=== PATIENT | male | born 1955 | race Caucasian/White ===

== ENCOUNTER 2016-09-15 13:50 | Inpatient (IN) ==
[2016-09-15] MEDS ORDERED: Ondansetron 4 MG/2 ML VIAL IVP ONE (15:47)
[2016-09-15] MEDS ORDERED: *HR* Morphine 2 MG/ML SYRINGE IVP ONE (15:47)
[2016-09-15] MEDS ORDERED: Piperacillin/Tazobactam 3.375 GM in D5% in Water (Mini-Bag+) 100 ML IVPB ONE (15:47)
[2016-09-15] MEDS ORDERED: 0.9 % Sodium Chloride 1,000 ML IVC ONE ×3 (15:47→19:04)
[2016-09-15] MEDS ORDERED: Vancomycin 1,250 MG in D5% in Water 250 ML IVPB ONE (15:49)
[2016-09-15 16:12] LABS: Hematocrit 39.5 % (37.5-50.1); Hemoglobin 13.4 g/dL (12.9-16.9); Mean Corpuscular HGB Conc 33.9 g/dL (31.6-35.5); Mean Corpuscular Hemoglobin 27.1 pg (28.0-33.3); Mean Platelet Volume 10.5 fL (9.4-12.4); Platelet Count 290 K/mcL (140-400); Red Blood Count 4.94 M/mcL (4.19-5.50); Segmented Neutrophils % 82.5 %
[2016-09-15 16:13] LABS: Basophils # 0.1 K/mcL (0.0-0.2); Basophils % 0.3 %; Eosinophils # 0.1 K/mcL (0.0-0.6); Eosinophils % 0.3 %; Immature Granulocytes % 1.8 % (0-4); Lymphocytes # 1.5 K/mcL (0.6-4.6); Lymphocytes % 7.3 %; Monocytes # 1.6 K/mcL (0.0-1.3); Monocytes % 7.8 %; Neutrophils # 17.4 K/mcL (1.6-8.9)
[2016-09-15 16:18] LABS: INR 1.3; Prothrombin Time 13.8 Seconds (9.4-12.1)
[2016-09-15 16:28] LABS: Albumin 2.7 g/dL (3.5-5.0); Albumin/Globulin Ratio 0.5 (1.1-2.2); Bilirubin,Direct 0.4 mg/dL (0.0-0.5); Bilirubin,Indirect 0.4 mg/dL (0.0-1.2); Bilirubin,Total 0.8 mg/dL (0.2-1.2); Calcium 9.5 mg/dL (8.6-10.8); Potassium 4.8 mEq/L (3.5-4.5); Total Protein 7.7 g/dL (6.0-8.3)
[2016-09-15 16:36] LABS: Bilirubin,Urine Negative (Negative); Blood,Urine Small (Negative); Clarity,Urine Turbid (Clear); Color,Urine Yellow (Yellow); Glucose,Urine (UA) >=1000 mg/dL (Normal); Ketones,Urine 40 mg/dL (Negative); Leukocyte Esterase,Urine Moderate (Negative); Nitrite,Urine Positive (Negative); Protein,Urine 30 mg/dL (Neg-Trace); Specific Gravity,Urine > 1.030 (1.010-1.025); Urobilinogen,Urine Normal (Normal)
[2016-09-15 16:38] LABS: Bacteria,Urine Many per hpf (None-Few); Hyaline Casts,Urine None Seen per lpf (None-Few); Squamous Epithelial Cell,Urine Many per lpf (None-Few); WBC,Urine TNTC per hpf (0-3)
--- NOTE | 2016-09-15 18:54 | Emergency Department Note ---
Disposition Clinical Impression: Epididymitis, Acute orchitis, Hyperglycemia, Blind in both eyes Urinary tract infection Qualifiers: Urinary tract infection type: acute cystitis Hematuria presence: without hematuria Qualified Code(s): N30.00 - Acute cystitis without hematuria Cellulitis Qualifiers: Site of cellulitis: other site Qualified Code(s): L03.818 - Cellulitis of other sites Disposition: Admitted As Inpatient Condition: Good Referrals: Jessica Christine CNP [Primary Care Provider] - Forms: ED Satisfaction Letter Time of Disposition: 19:09 Male Urogenital HPI - General Chief complaint: ED Urogenital-Male Stated complaint: Bladder infection Time Seen by Provider: 09/15/16 13:59 Source: patient Mode of arrival: ambulatory Limitations: no limitations Nursing Notes Reviewed: Yes Vital Signs Reviewed: Yes - History of Present Illness HPI Narrative: Patient presents emergency room with complaint of difficulty with urination and left testicular swelling. Patient denies any other medical history except for diabetes. Denies any recent fevers chills nausea vomiting or diarrhea. Denies chest pain shortness breath headache or vision change. Denies any recent sexual partners or trauma. Pt Subjective Complaint: testicle pain Onset (ago): day(s) Duration: constant Location: left testicle Severity: moderate Severity scale (1-10): 8 Quality: aching, sharp Improves with: none Worsens with: urination, palpation, movement Reports: denies other symptoms - Related Data Sexually active: No Home Medications Medication Instructions Recorded Confirmed No Known Home Drugs 09/15/16 09/15/16 Allergies Allergy/AdvReac Type Severity Reaction Status Date / Time No Known Allergies Allergy Verified 09/15/16 14:26 All systems ED: reviewed and negative except as stated. Constitutional: Denies: fever, chills Cardiovascular: Denies: chest pain, palpitations, dyspnea on exertion Respiratory: Denies: dyspnea, wheezes Gastrointestinal: Denies: abdominal pain, nausea, vomiting, diarrhea, constipation Genitourinary: Reports: urgency, dysuria, testicular pain. Denies: frequency, hematuria, discharge, testicular mass, genital lesions Musculoskeletal: Denies: back pain, neck pain Neurological: Denies: headache Past Medical History - Past Medical History Attestation: Yes The following information was validated with the patient. Source: patient Medical history: Reports: cancer, diabetes, hypertension, other Psychiatric history: Reports: depression - Social History Smoking Status: Former smoker Smokeless Tobacco Status: No Alcohol use: Reports: none Drug use: Reports: marijuana Physical Exam - General General appearance: alert, in no apparent distress - Chest Chest inspection: Present: normal inspection, symmetric chest wall rise - Respiratory Respiratory exam: Present: normal lung sounds bilaterally. Absent: respiratory distress, wheezes - Cardiovascular Cardiovascular exam: Present: regular rate, normal rhythm, normal heart sounds - Male exam: Present: normal testicular lie, circumcised, erythema, testicular tenderness, scrotal swelling. Absent: phimosis, paraphimosis Scrotal exam: testicular tenderness: left, testicular swelling: left, epididymal tenderness: left - Neurological Exam Neurological exam: Present: alert, oriented X3, CN II-XII intact, normal gait - Skin Skin exam: Present: warm, dry, intact, normal color Course Course Narrative: Patient seen and examined at the time of arrival. See history of present illness. 60-year-old male presents emergency room for evaluation of left testicular pain and hesitancy with urination. Patient denies any recent trauma or injuries. He has not been sexually active in over a year. Patient denies any abdominal pain or issues at this time. His main complaint is difficulty with urination and testicular pain. On my physical exam patient is resting in the bed in no distress she is apical pleural A issue. Lungs are clear heart is regular abdomen is soft nontender nondistended no guarding or rigidity no peritoneal-like symptoms. He has no pain with palpation of the bilateral chest wall and ribs. Genitourinary examination was completed. Patient has no inguinal lymphadenopathy noted. On evaluation of the penis and testicles the left testicle is approximately 5 times the size of the right testicle with significant firmness and cellulitic-like presentation to the skin. Symptoms are not present for almost 1 week according to the patient. Patient denies any history of infections or sexual transmitted diseases. Patient also denies trauma. Based on my presentation symptoms as well as the patient's medical history of diabetes and does not require medication patient is concerning for possible testicular torsion, orchitis, epididymitis, for knees gangrene. Patient was started on broad-spectrum antibiotics including vancomycin and Zosyn. IV antibiotics his blood cultures urinalysis Doppler ultrasound study of the testicle as well as CT imaging of the abdomen to be ordered at this time. Laboratory workup to be completed. Patient will most likely need admission to the hospital once this is treated. Disposition pending treatment course. Vital signs are stable on review patient is in no acute distress his oppositional palpation of the testicle. - Reevaluation(s) Reevaluation #1: Doppler study of the left testicle shows good blood flow. Confirmatory for orchitis and epididymitis with vascularity to the testicle itself. The bilateral testicles appear to be stable otherwise. CT imaging of the abdomen does show an enlarged prostate with urethral narrowing. This could be consistent with the patient's stricture. Urinalysis reviewed showing no acute signs of infection. Patient does not require gonorrhea chlamydia studies. Symptoms are most consistent with cellulitic orchitis. IV antibiotics given. No pain medication required at this time. Fluids given. Labs reviewed urine is negative for acute infection. Otherwise no other acute pathology. Consultation placed to the urologist secondary to the patient having a glucose of 600 on presentation. Concern from my perspective is that there could be progression of orchitis into Lynda's gangrene. Dr. Chang and I reviewed the presentation symptoms and he agreed that this is a concerning issue at this time. He recommended admission with IV antibiotics. Recommendation for Zosyn was given. Patient is artery receives Zosyn and Vanco. Patient will be admitted to the hospitalist at this time. Conversation was had with the hospitalist Dr. hawley. We reviewed the presentation symptoms and history and he had no other recommendations at this time. Patient stable and in no apparent distress at this point with the patient and the family were informed of the plantar comfortable with this plan at this time. Patient will be admitted to the hospital at this point. We will continue monitoring his emergency room admission processes completed. Patient also found a significantly elevated white blood cell count mildly elevated creatinine and a grossly infected urine. Antibiotic regimen should cover this. Patient was not started on the fluid boluses secondary to stable vital signs including blood pressure and heart rate initially. Second liter of fluids of a given at this time because of what appears to be lab abnormalities consistent with septic presentation with known focal infectious etiology. Patient is stable treatment course to be completed at this time. Time: 19:00 Vital Signs Temperature 98.4 F 09/15/16 14:23 Pulse Rate 96 09/15/16 14:23 Respiratory Rate 18 09/15/16 14:23 Blood Pressure 141/87 09/15/16 14:23 O2 Sat by Pulse Oximetry 99 09/15/16 14:23 Temperature 98.4 F 09/15/16 14:23 Pulse Rate 78 09/15/16 18:30 Respiratory Rate 16 09/15/16 18:30 Blood Pressure 154/92 09/15/16 18:30 O2 Sat by Pulse Oximetry 99 09/15/16 18:30 Oxygen Delivery Oxygen Delivery Room Air Urogenital-Male - MDM Narrative Medical decision making narrative: Orchitis, epididymitis, scrotal cellulitis - Medical Records Medical records reviewed: Yes I reviewed the patient's medical records. - Lab Data Lab results reviewed: Yes I reviewed the patient's lab results. Result diagrams: 09/15/16 16:03 09/15/16 16:03 Lab Results 09/15/16 09/15/16 09/15/16 Range/Units 16:03 16:03 16:03 WBC 21.1 H (4.3-11.1) K/mcL RBC 4.94 (4.19-5.50) M/mcL Hgb 13.4 (12.9-16.9) g/dL Hct 39.5 (37.5-50.1) % MCV 80.0 L (83.0-100.0) fL MCH 27.1 L (28.0-33.3) pg MCHC 33.9 (31.6-35.5) g/dL RDW 13.0 (11.5-14.5) % Plt Count 290 (140-400) K/mcL MPV 10.5 (9.4-12.4) fL Immature Gran % 1.8 (0-4) % Seg Neutrophils % 82.5 % Lymphocytes % 7.3 % Monocytes % 7.8 % Eosinophils % 0.3 % Basophils % 0.3 % Neutrophils # 17.4 H (1.6-8.9) K/mcL Lymphocytes # 1.5 (0.6-4.6) K/mcL Monocytes # 1.6 H (0.0-1.3) K/mcL Eosinophils # 0.1 (0.0-0.6) K/mcL Basophils # 0.1 (0.0-0.2) K/mcL PT 13.8 H (9.4-12.1) Seconds INR 1.3 APTT 31.0 (26.0-36.0) Seconds Sodium 128 L (136-145) mEq/L Potassium 4.8 H (3.5-4.5) mEq/L Chloride 94 L (98-109) mEq/L Carbon Dioxide 18 L (19-29) mEq/L BUN 32 H (8-26) mg/dL Creatinine 1.47 H (0.72-1.25) mg/dL Est GFR ( Amer) 59 L (> 60) Est GFR (Non-Af Amer) 49 L (> 60) BUN/Creatinine Ratio 22 (6-26) Glucose 599 H* (70-99) mg/dL Calculated Osmolality 301 H (280-300) Lactic Acid (0.5-2.2) mmol/L Calcium 9.5 (8.6-10.8) mg/dL Total Bilirubin 0.8 (0.2-1.2) mg/dL Direct Bilirubin 0.4 (0.0-0.5) mg/dL Indirect Bilirubin 0.4 (0.0-1.2) mg/dL AST 11 (5-34) Units/L ALT 9 (0-55) Units/L Alkaline Phosphatase 126 (38-126) Units/L Serum Total Protein 7.7 (6.0-8.3) g/dL Albumin 2.7 L (3.5-5.0) g/dL Globulin 5.0 H (2.4-3.5) g/dL Albumin/Globulin Ratio 0.5 L (1.1-2.2) Amylase 15 L (25-125) Units/L Lipase 17 (8-78) Units/L Urine Color (Yellow) Urine Clarity (Clear) Urine pH (5.0-8.0) pH Units Ur Specific [place] (1.010-1.025) Urine Protein (Neg-Trace) mg/dL Urine Glucose (UA) (Normal) mg/dL Urine Ketones (Negative) mg/dL Urine Blood (Negative) Urine Nitrite (Negative) Urine Bilirubin (Negative) Urine Urobilinogen (Normal) mg/dL Ur Leukocyte Esterase (Negative) Urine Microscopic RBC (0-3) per hpf Urine Microscopic WBC (0-3) per hpf Ur Squamous Epith Cells (None-Few) per lpf Urine Bacteria (None-Few) per hpf Hyaline Casts (None-Few) per lpf Urine Yeast Ur Culture Indicated? (NO) 09/15/16 09/15/16 Range/Units 16:03 16:25 WBC (4.3-11.1) K/mcL RBC (4.19-5.50) M/mcL Hgb (12.9-16.9) g/dL Hct (37.5-50.1) % MCV (83.0-100.0) fL MCH (28.0-33.3) pg MCHC (31.6-35.5) g/dL RDW (11.5-14.5) % Plt Count (140-400) K/mcL MPV (9.4-12.4) fL Immature Gran % (0-4) % Seg Neutrophils % % Lymphocytes % % Monocytes % % Eosinophils % % Basophils % % Neutrophils # (1.6-8.9) K/mcL Lymphocytes # (0.6-4.6) K/mcL Monocytes # (0.0-1.3) K/mcL Eosinophils # (0.0-0.6) K/mcL Basophils # (0.0-0.2) K/mcL PT (9.4-12.1) Seconds INR APTT (26.0-36.0) Seconds Sodium (136-145) mEq/L Potassium (3.5-4.5) mEq/L Chloride (98-109) mEq/L Carbon Dioxide (19-29) mEq/L BUN (8-26) mg/dL Creatinine (0.72-1.25) mg/dL Est GFR ( Amer) (> 60) Est GFR (Non-Af Amer) (> 60) BUN/Creatinine Ratio (6-26) Glucose (70-99) mg/dL Calculated Osmolality (280-300) Lactic Acid 1.1 (0.5-2.2) mmol/L Calcium (8.6-10.8) mg/dL Total Bilirubin (0.2-1.2) mg/dL Direct Bilirubin (0.0-0.5) mg/dL Indirect Bilirubin (0.0-1.2) mg/dL AST (5-34) Units/L ALT (0-55) Units/L Alkaline Phosphatase (38-126) Units/L Serum Total Protein (6.0-8.3) g/dL Albumin (3.5-5.0) g/dL Globulin (2.4-3.5) g/dL Albumin/Globulin Ratio (1.1-2.2) Amylase (25-125) Units/L Lipase (8-78) Units/L Urine Color Yellow (Yellow) Urine Clarity Turbid A (Clear) Urine pH 6.0 (5.0-8.0) pH Units Ur Specific [place] > 1.030 H (1.010-1.025) Urine Protein 30 H (Neg-Trace) mg/dL Urine Glucose (UA) >=1000 H (Normal) mg/dL Urine Ketones 40 H (Negative) mg/dL Urine Blood Small H (Negative) Urine Nitrite Positive A (Negative) Urine Bilirubin Negative (Negative) Urine Urobilinogen Normal (Normal) mg/dL Ur Leukocyte Esterase Moderate H (Negative) Urine Microscopic RBC 3-5 H (0-3) per hpf Urine Microscopic WBC TNTC H (0-3) per hpf Ur Squamous Epith Cells Many H (None-Few) per lpf Urine Bacteria Many H (None-Few) per hpf Hyaline Casts None Seen (None-Few) per lpf Urine Yeast Test Not Performed Ur Culture Indicated? YES A (NO) - Radiology Data Radiology results reviewed: Yes I reviewed the patient's radiology results. CT of the abdomen shows enlarged prostate with no stranding around it. Otherwise no acute pathology. There is no free air or cellulitic presentation to the lower part of the abdomen. - EKG Data EKG attestation: Yes I reviewed and interpreted this EKG. EKG shows normal: sinus rhythm, axis, intervals, QRS complexes, ST-T waves Rate: normal Rhythm: NSR [place]/QRS: normal Voltage: increased voltage throughout When compared to previous EKG there are: no significant changes Interpretation: no acute changes, unchanged when compared to prior tracing (date ) (11/08/15)
[2016-09-15] MEDS ORDERED: Naloxone 0.4 MG/ML INJ IVP PRN (21:21)
[2016-09-15] MEDS ORDERED: *HR* HYDROcodone/Acet 5/325 mg TABLET PO PRN (21:21)
[2016-09-15] MEDS ORDERED: Acetaminophen 325 MG TABLET PO PRN (21:21)
[2016-09-15] MEDS ORDERED: *HR* Morphine 2 MG/ML SYRINGE IVP PRN (21:21)
[2016-09-15] MEDS ORDERED: Ondansetron 4 MG/2 ML VIAL IVP PRN (21:21)
[2016-09-15] MEDS ORDERED: D5% in Water 1,000 ML IVC PRN (21:28)
[2016-09-15] MEDS ORDERED: *HR* Dextrose 50 % in Water (Syg) 50 ML SYRINGE IVP PRN (21:28)
[2016-09-15] MEDS ORDERED: Dextrose Gel 15 GM PO PRN ×2 (21:28)
--- NOTE | 2016-09-15 22:06 | Internal Med History&Physical ---
<Tree Dalton - Last Filed: 09/15/16 22:46> Date of Encounter: 09/15/16 Time of Encounter: 21:00 Assessment and Plan (1) Acute orchitis Current visit: Yes Status: Acute Patient presents with acute orchitis of the left testicle causing swelling of the testicle and scrotal area. 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 Urology consult ordered. Blood and urine cultures ordered. Will continue IV Zosyn Q6HR and IV vancomycin Q12HR. Acetaminophen ordered PRN for mild (1-3) pain, hydrocodone ordered PRN for moderate (4-6) pain, and morphine ordered PRN for severe (7-10) pain. Following up labs ordered to monitor WBC status (current WBC is 21.1). Patient does not currently meet sepsis criteria but will monitor him closely for signs of increased infection or sepsis. (2) Cellulitis of scrotum Current visit: Yes Status: Acute Patient presents with orchitis of the left testicle causing swelling of the testicle and scrotal area. Skin is erythematous, warm, and has a cellulitis- like appearance. Will continue IV Zosyn Q6HR and IV vancomycin Q12HR. Acetaminophen ordered PRN for mild (1-3) pain, hydrocodone ordered PRN for moderate (4-6) pain, and morphine ordered PRN for severe (7-10) pain. Following up labs ordered to monitor WBC status. (3) Hyperglycemia Current visit: Yes Status: Acute Patient presents with acute hyperglycemia of 599. Patient states that he is diabetic but does not take medication or insulin at this time. He took Metformin previously. Will do blood glucose checks ACHS and medium dose correction insulin sliding scale. Will consider using 6 units at mealtime if necessary. Will monitor patient. A1C ordered. (4) Discharge planning issues Current visit: Yes Status: Acute Patient presents with total blindness and lives alone. He reports that his daughter does not help him and that his sisters can only help occasionally because they are older and have responsibilities of their own. He states that he does his own dishes, cooking, etc. but cannot get to appointments or to the grocery store. He reports he has not been able to buy groceries for three weeks. SW consult placed to assess what assistance is available to the patient to help maintain his independence. (5) Blind in both eyes Current visit: Yes Status: Chronic Patient presents with total blindness that he reports began in December of 2014. He reports he lost total vision in his left eye first and was encouraged to have surgery in the right eye but lost vision in the right eye following surgery. Patient currently suffers from anxiety and depression related to lack of help. SW consult ordered to assess possible assistance for patient at home. (6) HTN (hypertension) Current visit: Yes Status: Chronic Patient presents with history of chronic hypertension but does not currently take any medication for his HTN. Will administer amlodipine 5 mg daily and monitor patient and vital signs. Qualifiers: Hypertension type: essential hypertension Qualified Code(s): I10 - Essential (primary) hypertension (7) DVT prophylaxis Current visit: Yes Status: Acute Patient is to be placed on DVT prophylaxis due to admission protocol and current bed rest status. Heparin 5,000 units SQ Q8 ordered. Internal Medicine - H&P: HPI Chief complaint: Left testicle swelling/pain Admitted From: Emergency Dept Plans for Post Hospital Care: Home History of present illness: Mr. Toussaint is a 60 year old male who presents from the ED with chief complaint of left testicle swelling and pain for the past 3-4 weeks with symptoms becoming worse over the past week. He also reports difficulty urinating. He denies any recent trauma and states that he has not been sexually active in over a year. Patient has medical history of hypertension and diabetes but teresa not take any medications at this time. He reports that his blood glucose ranged between 108 to 120 but has gotten higher recently. His PCP is Jessica Christine and he states that he has discussed not taking his medications with her but has not been to see her for awhile. Patient reports generalized weakness, dizziness/ lightheadedness, nausea, vomiting, and diarrhea for the past several weeks while he has felt ill but denies fever, chills, chest pain, SOB, or numbness/ tingling. 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 Urology consult ordered and placed. IV Zosyn and vancomycin were administered in the ED and will be continued with IV Zosyn Q6 and IV vancomycin Q12. Patient's initial lactic acid was 1.1. Patient currently has a WBC of 21.1 but no other criteria for sepsis. Will order follow-up labs to monitor WBC and we will continue to monitor patient for signs of increased infection or sepsis. Patient is at high risk for further complications given his testicular infection and will be placed as inpatient with continuation of antibiotic therapy, orders for blood and urine cultures, and safety precautions due to dizziness/lightheadedness. Patient is also currently hyperglycemic with blood glucose of 599 so orders for glucose monitoring ACHS, medium dose correction insulin sliding scale, and hypoglycemia protocol placed. SW consult placed to assess for possible help available to patient based on his current anxiety/ depression related to his current health status and his total blindness. Patient is independent but requires assistance. Patient to be monitored closely. Time spent with patient >40 minutes. 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) - Social History Smoking Status: Former smoker Packs per day: 1 PPD - reports quitting 20 years ago Smokeless Tobacco Status: No Alcohol use: none Drug use: none Occupational status: previously employed Current living situation: Home - Independent Activity Level: Independent ambulation Recent Out of Country Travel Within the Last 8 Weeks: No Exposure or Possible Exposure to Illness During Travel: No - Family History Father Race: Family Member Ethnicity: Non- Living Status: Age at : 65 Cause of : [place] Hx Family Cardiac Disorders: Yes ([place]) Mother Race: Family Member Ethnicity: Non- Living Status: Age at : 72 Cause of : CHF Hx Family Cardiac Disorders: Yes (CHF) Brother Race: Family Member Ethnicity: Non- Living Status: Still Living Hx Family Endocrine Disorder: Yes (DM) Sister Race: Family Member Ethnicity: Non- Living Status: Still Living Hx Family Cardiac Disorders: Yes (Stroke) Internal Medicine - H&P: Meds No Known Home Drugs 09/15/16 [History] Allergies No Known Allergies Allergy (Verified 09/15/16 14:26) All Systems PM: A 10-system review of systems was performed and is negative for pertinent findings except as documented above in the HPI. - Constitutional Constitutional: no chills, no fever(s), no night sweats - EENT Eyes: as per HPI, other visual disturbances (Total blindness since 2014), no discharge, no pain, no photophobia Ears: no ear discharge, no ear pain, no tinnitus Nose, mouth and throat: no dysphagia, no nasal discharge, no neck pain, no sore throat - Breasts Breasts: as per HPI - Cardiovascular Cardiovascular ROS IM: as per HPI, lightheadedness, no chest pain, no diaphoresis, no dyspnea, no palpitations, no syncope - Respiratory Respiratory: no cough, no dyspnea, no wheezing, no excessive phlegm production - Gastrointestinal Gastrointestinal: no abdominal pain, no diarrhea, no hematemesis, no hematochezia, no melena, no nausea, no vomiting - Genitourinary Genitourinary ROS male: as per HPI, difficulty urinating, testicular pain (Left swelling and pain due to orchitis) - Musculoskeletal Musculoskeletal ROS IM: no numbness, no tingling - Integumentary Integumentary IM: no rash, no unusual bruising - Neurological Neurological ROS: no confusion, no convulsions, no focal weakness, no numbness, no tingling, no tremor(s) - Psychiatric Psychiatric: as per HPI, anxiety, depression - Endocrine Endocrine IM: as per HPI - Hematologic/Lymphatic Hematologic/Lymphatic: no easy bruising - Allergic/Immunologic Allergic/Immunologic: as per HPI - Constitutional Vitals: Temp Pulse Resp BP Pulse Ox 98.4 F 85 14 164/93 98 09/15/16 21:01 09/15/16 21:01 09/15/16 21:01 09/15/16 21:01 09/15/16 21:01 General appearance: Present: cooperative, A&O X 3, pleasant, no acute distress, answers questions appropriately - Head Head exam: Present: atraumatic, normocephalic - Eye Eye exam: Present: conjuntiva pink, sclera anicteric - ENT ENT exam: Present: normal exam, normal external ear exam - Neck Neck exam general surgery: Present: supple, trachea midline. Absent: lymphadenopathy - Respiratory Respiratory exam: Present: CTAB. Absent: accessory muscle use, rales, rhonchi, wheezes - Cardiovascular Cardiovascular exam: Present: RRR, +S1, +S2. Absent: diastolic murmur, gallop, rubs, systolic murmur - GI/Abdominal GI/Abdominal exam: Present: normal bowel sounds, soft, no peritoneal signs. Absent: distended, tenderness - Rectal Rectal exam: Present: deferred - exam: Present: testicular tenderness - Expanded Exam exam: testicular swelling: Left, testicular tenderness: Left - Extremities Exam Extremities exam: Present: warm, radial pulses palpable and symetrical. Absent : calf tenderness, cyanotic, pedal edema - Back Exam Back exam: Present: normal inspection - Neurological Exam Neurological exam: Present: CN II-XII intact, oriented X3, no focal deficits. Absent: pronater drift, facial droop, speech deficit - Psychiatric Psychiatric exam: Present: depressed - Skin Skin exam: Present: dry, intact Internal Med - H&P Results - Labs CBC & Chem 7: 09/15/16 16:03 09/15/16 16:03 - EKG Data EKG shows normal: sinus rhythm - EKG Data Prior EKG available for review: yes When compared to previous EKG: there is no significant change EKG comments: 09/15/16 22:17 EKG dated 11/08/15 shows sinus rhythm with voltage criteria for LVH and poor R- wave progression. EKG dated 09/15/16 shows sinus rhythm with minimal voltage criteria for LVH, consider normal variant, and nonspecific T-wave abnormality. - Diagnostic Studies Other Images Additional comments: Impressions Scrotum Ultrasound 09/15/16 15:48 IMPRESSION: 1. No evidence of testicular torsion bilaterally. 2. Increased vascularity of the left testicle and epididymis, suggestive of epididymal orchitis. 3. Small fat containing left inguinal hernia. D/ / Rodriguez Huerta MD / Rodriguez Huerta MD Interpreting Provider: Rodriguez Huerta MD CT scan - abdomen Additional comments: Impressions Abdomen/Pelvis CT 09/15/16 15:48 IMPRESSION: 1. Borderline splenomegaly. 2. Otherwise no acute findings within the abdomen or pelvis. 3. No nephrolithiasis or hydronephrosis. 4. Normal appendix. 5. Mild to moderate prostatomegaly. Mild diffuse bladder wall thickening, likely representing sequela of bladder obstruction from BPH. D/ / 09/15/2016 17:00:30 Rodriguez Huerta MD / matilde Interpreting Provider: Rodriguez Huerta MD <Eliana Ken - Last Filed: 09/16/16 06:05> Date of Encounter: 09/16/16 Internal Medicine - H&P: HPI History of present illness: Mr. Toussaint is a 60 year old male All Systems PM: A 10-system review of systems was performed and is negative for pertinent findings except as documented above in the HPI. - Constitutional Vitals: Temp Pulse Resp BP Pulse Ox 99.4 F 90 14 151/84 96 09/16/16 04:09 09/16/16 04:09 09/16/16 04:09 09/16/16 04:09 09/16/16 04:09 Internal Med - H&P Results - Labs CBC & Chem 7: 09/16/16 04:27 09/15/16 16:03 Labs: Short CBC 09/16/16 Range/Units 04:27 WBC 18.4 H (4.3-11.1) K/mcL Hgb 12.4 L (12.9-16.9) g/dL Hct 36.8 L (37.5-50.1) % Plt Count 285 (140-400) K/mcL Neutrophils # 14.3 H (1.6-8.9) K/mcL - Attending Attestation I examined this patient and my medical decision-making was reviewed with the Advanced Practice Nurse I agree with the documented findings, disposition and treatment plan as described
[2016-09-15] MEDS: 0.9 % Sodium Chloride 1,000 ML IVC SCH (22:53)
[2016-09-15] MEDS: amLODIPine 5 MG TABLET PO SCH (23:54)
[2016-09-15] MEDS: Piperacillin/Tazobactam 3.375 GM in D5% in Water (Mini-Bag+) 100 ML IVPB SCH (23:54)
[2016-09-15] MEDS: *HR* Heparin 5,000 UNIT/ML VIAL SQ SCH (23:54)
[2016-09-16] MEDS ORDERED: Piperacillin/Tazobactam 3.375 GM in D5% in Water (Mini-Bag+) 100 ML IVPB SCH (02:00)
[2016-09-16] MEDS ORDERED: Vancomycin 1,250 MG in D5% in Water 250 ML IVPB SCH (05:00)
[2016-09-16] MEDS: Piperacillin/Tazobactam 3.375 GM in D5% in Water (Mini-Bag+) 100 ML IVPB SCH ×2 (05:35→11:40)
[2016-09-16 05:44] LABS: Basophils # 0.1 K/mcL (0.0-0.2); Basophils % 0.5 %; Eosinophils # 0.1 K/mcL (0.0-0.6); Eosinophils % 0.7 %; Hematocrit 36.8 % (37.5-50.1); Hemoglobin 12.4 g/dL (12.9-16.9); Immature Granulocytes % 1.2 % (0-4); Lymphocytes % 10.9 %; Mean Corpuscular HGB Conc 33.7 g/dL (31.6-35.5); Mean Corpuscular Hemoglobin 26.7 pg (28.0-33.3); Mean Corpuscular Volume 79.3 fL (83.0-100.0); Mean Platelet Volume 10.7 fL (9.4-12.4); Monocytes # 1.7 K/mcL (0.0-1.3); Neutrophils # 14.3 K/mcL (1.6-8.9); Platelet Count 285 K/mcL (140-400); Red Blood Count 4.64 M/mcL (4.19-5.50); Segmented Neutrophils % 77.7 %
[2016-09-16 05:49] LABS: Hemoglobin A1C 13.7 %
[2016-09-16 06:05] LABS: BUN/Creatinine Ratio 22 (6-26); Blood Urea Nitrogen 24 mg/dL (8-26); Calcium 8.3 mg/dL (8.6-10.8); Carbon Dioxide 19 mEq/L (19-29); Chloride 103 mEq/L (98-109); Chol/HDL Ratio 5.6 (0-4.9); Cholesterol 141 mg/dL (< 200); Glucose 393 mg/dL (70-99); HDL Cholesterol 25 mg/dL (40-59); LDL Cholesterol,Calculated 86 mg/dL (0-99); Magnesium 1.9 mg/dL (1.6-2.6); Osmolality,Calculated 294 (280-300); Potassium 4.3 mEq/L (3.5-4.5); Sodium 132 mEq/L (136-145); Triglycerides 152 mg/dL (< 150); eGFR For African Americans > 60 (> 60); eGFR For Non-African Americans > 60 (> 60)
[2016-09-16] MEDS ORDERED: Vancomycin 1,500 MG in D5% in Water 250 ML IVPB SCH (07:00)
[2016-09-16] MEDS: *HR* Heparin 5,000 UNIT/ML VIAL SQ SCH ×2 (08:16→16:44)
[2016-09-16] MEDS: Pantoprazole 40 MG VIAL IVP SCH (08:17)
[2016-09-16] MEDS: Insulin LISPRO 300 UNITS/3 ML VIAL SQ SCH ×4 (08:17→20:28)
[2016-09-16] MEDS: amLODIPine 5 MG TABLET PO SCH (08:17)
--- NOTE | 2016-09-16 08:39 | Urology - Consult Note ---
Date of Encounter: 09/16/16 Time of Encounter: 08:37 - Assessment and Plan (1) Epididymitis Current Visit: Yes Status: Acute Assessment and plan: 60-year-old man with diabetes and an acute urinary tract infection with epididymitis. His currently on Zosyn. Await for the results of the urine culture. Continue broad-spectrum antibiotics until the culture results have returned. I advised the nurse to apply scrotal elevation to improve his swelling. At this time, no surgical intervention is necessary. We will continue to follow while he is an inpatient. (2) Urinary tract infection Current Visit: Yes Status: Acute Assessment and plan: He has concern for a urinary tract infection. His urinalysis showed positive nitrite and numerous white blood cells. Once the urine culture returns, we can tailor antibiotic coverage. Qualifiers: Urinary tract infection type: acute cystitis Hematuria presence: without hematuria Qualified Code(s): N30.00 - Acute cystitis without hematuria Urology CN:HPI Consult date: 09/16/16 Reason for consult Urology: Other (Orchitis) Requesting physician: William Hines History of present illness: 60-year-old man was admitted for hyperglycemia and left orchitis. He reports having left testicular pain and swelling over the last week. The pain has been mild to moderate. It is mostly tender when he moves. While he is lying, his pain is minimal. He says his left testicle feels very firm and hard to him. He was seen in the emergency department. CT scan and ultrasound were obtained. This showed evidence of left epididymoorchitis. There is no evidence of abscess or gangrene. He has been admitted and is currently on Zosyn. His urinalysis appeared infected. Past Med Surg Social Fam HX - Past Medical History Medical history: cancer (Skin melanoma 20 years ago ), diabetes, hypertension, other Psychiatric history: anxiety, depression - Past Surgical History Surgical History: other (Eye surgery on right eye after loss of sight in left eye. 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) - Social History Smoking Status: Former smoker Packs per day: 1 PPD - reports quitting 20 years ago Smokeless Tobacco Status: No Alcohol use: none Drug use: none - Family History Brother Race: Family Member Ethnicity: Non- Living Status: Still Living Hx Family Endocrine Disorder: Yes (DM) Sister Race: Family Member Ethnicity: Non- Living Status: Still Living Hx Family Cardiac Disorders: Yes (Stroke) Father Race: Family Member Ethnicity: Non- Living Status: Age at : 65 Cause of : [place] Hx Family Cardiac Disorders: Yes ([place]) Mother Race: Family Member Ethnicity: Non- Living Status: Age at : 72 Cause of : CHF Hx Family Cardiac Disorders: Yes (CHF) Medications and Allergies No Known Home Drugs 09/15/16 [History] Allergies No Known Allergies Allergy (Verified 09/15/16 14:26) Review of Systems - Constitutional no chills, no fever(s) - EENT Nose, mouth and throat: no dizziness - Cardiovascular no chest pain - Respiratory no dyspnea - Gastrointestinal no nausea, no vomiting - Genitourinary genital pain, no flank pain, no hematuria - Musculoskeletal no back pain - Integumentary no erythema, no rash - Neurological no weakness - Psychiatric no suicidal ideation - Hematologic/Lymphatic no easy bleeding - Allergic/Immunologic no wheezing Exam Initial Vital Signs Temp Pulse Resp BP Pulse Ox 98.4 F 96 18 141/87 99 09/15/16 14:23 09/15/16 14:23 09/15/16 14:23 09/15/16 14:23 09/15/16 14:23 - General physical appearance Present: well developed, well nourished, no distress - ENT Present: normal nares - Neck Present: trachea midline - Respiratory Present: normal respiratory effort - Cardiovascular Cardiovascular exam IM: RRR - Abdomen Abdomen: Present: soft - Genitourinary normal penis with no external lesions, testicles present, other (Scrotum is slightly erythematous. Left testicle and hemiscrotum is firm and swollen. It is tender to palpation. No fluctuance is noted. No abscess or sinus draining is seen.) Urology Results - Labs 09/16/16 04:27 09/16/16 04:27 Abnormal lab results WBC 18.4 K/mcL (4.3-11.1) H 09/16/16 04:27 Hgb 12.4 g/dL (12.9-16.9) L 09/16/16 04:27 Hct 36.8 % (37.5-50.1) L 09/16/16 04:27 MCV 79.3 fL (83.0-100.0) L 09/16/16 04:27 MCH 26.7 pg (28.0-33.3) L 09/16/16 04:27 Neutrophils # 14.3 K/mcL (1.6-8.9) H 09/16/16 04:27 Monocytes # 1.7 K/mcL (0.0-1.3) H 09/16/16 04:27 PT 13.8 Seconds (9.4-12.1) H 09/15/16 16:03 Sodium 132 mEq/L (136-145) L 09/16/16 04:27 Glucose 393 mg/dL (70-99) H 09/16/16 04:27 POC Glucose 304 (58-89) H 09/16/16 07:39 Hemoglobin A1c 13.7 % (-5.6) H 09/16/16 04:27 Calcium 8.3 mg/dL (8.6-10.8) L 09/16/16 04:27 Albumin 2.7 g/dL (3.5-5.0) L 09/15/16 16:03 Globulin 5.0 g/dL (2.4-3.5) H 09/15/16 16:03 Albumin/Globulin Ratio 0.5 (1.1-2.2) L 09/15/16 16:03 Triglycerides 152 mg/dL (< 150) H 09/16/16 04:27 HDL Cholesterol 25 mg/dL (40-59) L 09/16/16 04:27 Cholesterol/HDL Ratio 5.6 (0-4.9) H 09/16/16 04:27 Amylase 15 Units/L (25-125) L 09/15/16 16:03 Urine Clarity Turbid (Clear) A 09/15/16 16:25 Ur Specific [place] > 1.030 (1.010-1.025) H 09/15/16 16:25 Urine Protein 30 mg/dL (Neg-Trace) H 09/15/16 16:25 Urine Glucose (UA) >=1000 mg/dL (Normal) H 09/15/16 16:25 Urine Ketones 40 mg/dL (Negative) H 09/15/16 16:25 Urine Blood Small (Negative) H 09/15/16 16:25 Urine Nitrite Positive (Negative) A 09/15/16 16:25 Ur Leukocyte Esterase Moderate (Negative) H 09/15/16 16:25 Urine Microscopic RBC 3-5 per hpf (0-3) H 09/15/16 16:25 Urine Microscopic WBC TNTC per hpf (0-3) H 09/15/16 16:25 Ur Squamous Epith Cells Many per lpf (None-Few) H 09/15/16 16:25 Urine Bacteria Many per hpf (None-Few) H 09/15/16 16:25 Ur Culture Indicated? YES (NO) A 09/15/16 16:25 Diabetes panel 09/16/16 09/16/16 Range/Units 04:27 04:27 Sodium 132 L (136-145) mEq/L Potassium 4.3 (3.5-4.5) mEq/L Chloride 103 (98-109) mEq/L Carbon Dioxide 19 (19-29) mEq/L BUN 24 (8-26) mg/dL Creatinine 1.11 (0.72-1.25) mg/dL Glucose 393 H (70-99) mg/dL Hemoglobin A1c 13.7 H ( - 5.6) % Calcium 8.3 L (8.6-10.8) mg/dL Triglycerides 152 H (< 150) mg/dL HDL Cholesterol 25 L (40-59) mg/dL Calcium panel 09/16/16 Range/Units 04:27 Calcium 8.3 L (8.6-10.8) mg/dL Pituitary panel 09/16/16 Range/Units 04:27 Sodium 132 L (136-145) mEq/L Potassium 4.3 (3.5-4.5) mEq/L Chloride 103 (98-109) mEq/L Carbon Dioxide 19 (19-29) mEq/L BUN 24 (8-26) mg/dL Creatinine 1.11 (0.72-1.25) mg/dL Glucose 393 H (70-99) mg/dL Calcium 8.3 L (8.6-10.8) mg/dL Adrenal panel 09/16/16 Range/Units 04:27 Sodium 132 L (136-145) mEq/L Potassium 4.3 (3.5-4.5) mEq/L Chloride 103 (98-109) mEq/L Carbon Dioxide 19 (19-29) mEq/L BUN 24 (8-26) mg/dL Creatinine 1.11 (0.72-1.25) mg/dL Glucose 393 H (70-99) mg/dL Calcium 8.3 L (8.6-10.8) mg/dL All other labs normal. - Imaging CT scan - abdomen: report reviewed, image reviewed CT scan - pelvis: report reviewed, image reviewed US - abdomen: report reviewed, image reviewed US - pelvic: report reviewed, image reviewed Consult Discharge Plan - Plan Referrals: Jessica Christine, TROMMEL TENDER [Primary Care Provider] -
[2016-09-16] MEDS ORDERED: Doxycycline 100 MG in 0.9 % Sodium Chloride Mini Bag 100 ML IVPB SCH (13:30)
--- NOTE | 2016-09-16 13:34 | Internal Med Progress Note ---
Date of Encounter: 09/16/16 Time of Encounter: 13:31 - Assessment and plan (1) Sepsis Current Visit: Yes Status: Acute Assessment and plan: Secondary to acute left orchitis, epididymitis and acute cellulitis is Discontinue vancomycin and Zosyn Start Levaquin and doxycycline IV Obtain urine sample to test for gonococcus and Chlamydia Await urine cultures Urology medical sales consultant Qualifiers: Sepsis type: sepsis due to unspecified organism Qualified Code(s): A41.9 - Sepsis, unspecified organism (2) HTN (hypertension) Current Visit: Yes Status: Chronic Qualifiers: Hypertension type: essential hypertension Qualified Code(s): I10 - Essential (primary) hypertension (3) T2DM (type 2 diabetes mellitus) Current Visit: No Status: Chronic Assessment and plan: Continue insulin sliding scale Qualifiers: Diabetes mellitus complication status: without complication Diabetes mellitus intermediate school teacher insulin use: without intermediate school teacher use Qualified Code(s): E11.9 - Type 2 diabetes mellitus without complications (4) Blind in both eyes Current Visit: Yes Status: Chronic (5) Urinary tract infection Current Visit: Yes Status: Acute Qualifiers: Urinary tract infection type: acute cystitis Hematuria presence: without hematuria Qualified Code(s): N30.00 - Acute cystitis without hematuria (6) Epididymitis Current Visit: Yes Status: Acute (7) Acute orchitis Current Visit: Yes Status: Acute (8) Cellulitis of scrotum Current Visit: Yes Status: Acute - Subjective Interval history: Complains of pain in his left testicle, denies any major dysuria at the moment, no abdominal pain, no diarrhea, no chest pressures of breath, complains of chills - Constitutional Vitals: Temp Pulse Resp BP Pulse Ox 98.8 F 88 16 121/76 94 09/16/16 11:09 09/16/16 11:09 09/16/16 11:09 09/16/16 11:09 09/16/16 11:09 General appearance: Present: cooperative, A&O X 3, pleasant, no acute distress, answers questions appropriately - Head Head exam: Present: atraumatic, normocephalic - Eye Eye exam: Present: conjuntiva pink, sclera anicteric. Absent: PERRL Pupils: Absent: PERRL Additional comments: Bilateral blindness - Neck Neck exam general surgery: Present: supple, trachea midline. Absent: lymphadenopathy - Respiratory Respiratory exam: Present: CTAB. Absent: accessory muscle use, rales, rhonchi, wheezes - Cardiovascular Cardiovascular exam: Present: RRR, +S1, +S2. Absent: diastolic murmur, gallop, rubs, systolic murmur - GI/Abdominal GI/Abdominal exam: Present: normal bowel sounds, soft, no peritoneal signs. Absent: distended, tenderness Additional comments: Scrotum is extremely edematous and erythematous mainly on the left side, tender to touch - Extremities Exam Extremities exam: Present: warm, radial pulses palpable and symetrical. Absent : calf tenderness, cyanotic, pedal edema - Neurological Exam Neurological exam: Present: CN II-XII intact, oriented X3, no focal deficits. Absent: pronater drift, facial droop, speech deficit - Skin Skin exam: Present: dry, intact Internal Medicine: Result - Labs CBC & Chem 7: 09/16/16 04:27 09/16/16 04:27 Labs: Short CBC 09/16/16 Range/Units 04:27 WBC 18.4 H (4.3-11.1) K/mcL Hgb 12.4 L (12.9-16.9) g/dL Hct 36.8 L (37.5-50.1) % Plt Count 285 (140-400) K/mcL Neutrophils # 14.3 H (1.6-8.9) K/mcL BMP 09/16/16 04:27 Sodium 132 L Potassium 4.3 Chloride 103 Carbon Dioxide 19 BUN 24 Creatinine 1.11 Glucose 393 H Calcium 8.3 L - ABG Interpretation ABG results: PT/INR, D-dimer PT 13.8 Seconds (9.4-12.1) H 09/15/16 16:03 Consult Discharge Plan - Plan Referrals: Jessica Christine, CIPHER EXPERT [Primary Care Provider] -
[2016-09-16] MEDS ORDERED: Levofloxacin 500 MG/100 ML 500 MG/100 ML BAG IVPB SCH (14:00)
[2016-09-16] MEDS: Levofloxacin 750 MG/150 ML 750 MG/150 ML BAG IVPB SCH (14:32)
[2016-09-16] MEDS: 0.9 % Sodium Chloride 1,000 ML IVC SCH ×2 (14:41→20:28)
[2016-09-17] MEDS: *HR* Heparin 5,000 UNIT/ML VIAL SQ SCH ×4 (00:56→23:35)
[2016-09-17] MEDS ORDERED: Doxycycline 100 MG in 0.9 % Sodium Chloride Mini Bag 100 ML IVPB SCH (02:30)
[2016-09-17 05:34] LABS: Hematocrit 35.4 % (37.5-50.1); Hemoglobin 11.8 g/dL (12.9-16.9); Immature Platelets 2.9 % (1.1-6.1); Mean Corpuscular HGB Conc 33.3 g/dL (31.6-35.5); Mean Corpuscular Hemoglobin 26.9 pg (28.0-33.3); Mean Corpuscular Volume 80.6 fL (83.0-100.0); Mean Platelet Volume 10.4 fL (9.4-12.4); Red Blood Count 4.39 M/mcL (4.19-5.50); Red Cell Distribution Width 12.6 % (11.5-14.5)
[2016-09-17 06:24] LABS: BUN/Creatinine Ratio 21 (6-26); Blood Urea Nitrogen 19 mg/dL (8-26); Calcium 8.4 mg/dL (8.6-10.8); Carbon Dioxide 17 mEq/L (19-29); Chloride 108 mEq/L (98-109); Glucose 243 mg/dL (70-99); Osmolality,Calculated 292 (280-300); Sodium 136 mEq/L (136-145); eGFR For African Americans > 60 (> 60); eGFR For Non-African Americans > 60 (> 60)
[2016-09-17] MEDS ORDERED: Aminoglycoside Consult 1 EACH MC ONE (08:28)
[2016-09-17] MEDS: Insulin LISPRO 300 UNITS/3 ML VIAL SQ SCH ×4 (08:30→20:37)
[2016-09-17] MEDS: Levofloxacin 750 MG/150 ML 750 MG/150 ML BAG IVPB SCH (08:30)
[2016-09-17] MEDS: Pantoprazole 40 MG VIAL IVP SCH (08:30)
[2016-09-17] MEDS: amLODIPine 5 MG TABLET PO SCH (08:30)
--- NOTE | 2016-09-17 09:21 | Urology Progress Note ---
Date of Encounter: 09/17/16 Time of Encounter: 09:18 - Assessment and Plan (1) Epididymitis Current Visit: Yes Status: Acute Assessment and plan: His left epididymitis is stable and slightly improved given his improvement in the white blood cell count. Await urine cultures. IV Levofloxacin is a reasonable antibiotic given that it can be transitioned to an oral version. we'll continue to follow along. (2) Urinary tract infection Current Visit: Yes Status: Acute Assessment and plan: His urine is growing out gram-negative rods. We will await results of urine cultures and then transition to oral antibiotics. Qualifiers: Urinary tract infection type: acute cystitis Hematuria presence: without hematuria Qualified Code(s): N30.00 - Acute cystitis without hematuria Progress Note Narrative: 60-year-old man with left epididymo-orchitis and urinary tract infection. He is doing well. No fevers overnight. He is still having some swelling and discomfort in the left hemiscrotum. Cultures are growing out gram-negative rods. He is currently on levofloxacin and doxycycline IV. GC and Chlamydia testing were negative. Objective Initial Vital Signs Temp Pulse Resp BP Pulse Ox 98.4 F 96 18 141/87 99 09/15/16 14:23 09/15/16 14:23 09/15/16 14:23 09/15/16 14:23 09/15/16 14:23 - General physical appearance Present: well developed, well nourished, no distress - Respiratory Present: normal respiratory effort - Abdomen Present: soft - Genitourinary Present: normal penis with no external lesions (left testicle is still edematous and firm. No abscess noted. No gangrene seen.) - Labs 09/17/16 04:42 09/17/16 04:42 Diabetes panel 09/17/16 Range/Units 04:42 Sodium 136 (136-145) mEq/L Potassium 4.0 (3.5-4.5) mEq/L Chloride 108 (98-109) mEq/L Carbon Dioxide 17 L (19-29) mEq/L BUN 19 (8-26) mg/dL Creatinine 0.90 (0.72-1.25) mg/dL Glucose 243 H (70-99) mg/dL Calcium 8.4 L (8.6-10.8) mg/dL Calcium panel 09/17/16 Range/Units 04:42 Calcium 8.4 L (8.6-10.8) mg/dL Pituitary panel 09/17/16 Range/Units 04:42 Sodium 136 (136-145) mEq/L Potassium 4.0 (3.5-4.5) mEq/L Chloride 108 (98-109) mEq/L Carbon Dioxide 17 L (19-29) mEq/L BUN 19 (8-26) mg/dL Creatinine 0.90 (0.72-1.25) mg/dL Glucose 243 H (70-99) mg/dL Calcium 8.4 L (8.6-10.8) mg/dL Adrenal panel 09/17/16 Range/Units 04:42 Sodium 136 (136-145) mEq/L Potassium 4.0 (3.5-4.5) mEq/L Chloride 108 (98-109) mEq/L Carbon Dioxide 17 L (19-29) mEq/L BUN 19 (8-26) mg/dL Creatinine 0.90 (0.72-1.25) mg/dL Glucose 243 H (70-99) mg/dL Calcium 8.4 L (8.6-10.8) mg/dL Consult Discharge Plan - Plan Referrals: Jessica Christine, WINDING OPERATOR [Primary Care Provider] -
--- NOTE | 2016-09-17 09:41 | Internal Med Progress Note ---
Date of Encounter: 09/17/16 Time of Encounter: 09:39 - Assessment and plan (1) Sepsis Current Visit: Yes Status: Acute Assessment and plan: Secondary to acute left orchitis, epididymitis and acute cellulitis Discontinued vancomycin and Zosyn on 09/15/16 Continue Levaquin day 2 Discontinue doxycycline IV as he tested negative for gonococcus and Chlamydia urine culture growing a gram-negative bacteria Urology consulted Qualifiers: Sepsis type: sepsis due to unspecified organism Qualified Code(s): A41.9 - Sepsis, unspecified organism (2) HTN (hypertension) Current Visit: Yes Status: Chronic Qualifiers: Hypertension type: essential hypertension Qualified Code(s): I10 - Essential (primary) hypertension (3) T2DM (type 2 diabetes mellitus) Current Visit: No Status: Chronic Assessment and plan: Continue insulin sliding scale Qualifiers: Diabetes mellitus complication status: without complication Diabetes mellitus chcf insulin use: without chcf use Qualified Code(s): E11.9 - Type 2 diabetes mellitus without complications (4) Blind in both eyes Current Visit: Yes Status: Chronic (5) Urinary tract infection Current Visit: Yes Status: Acute Qualifiers: Urinary tract infection type: acute cystitis Hematuria presence: without hematuria Qualified Code(s): N30.00 - Acute cystitis without hematuria (6) Epididymitis Current Visit: Yes Status: Acute (7) Acute orchitis Current Visit: Yes Status: Acute (8) Cellulitis of scrotum Current Visit: Yes Status: Acute - Subjective Interval history: Complains of less pain in his left testicle, denies any major dysuria at the moment, no abdominal pain, no diarrhea, no chest pressures of breath, complains of chills, no fever - Constitutional Vitals: Temp Pulse Resp BP Pulse Ox 98 F 79 18 138/81 93 09/17/16 08:06 09/17/16 08:06 09/17/16 08:06 09/17/16 08:06 09/17/16 08:15 General appearance: Present: cooperative, A&O X 3, pleasant, no acute distress, answers questions appropriately Exam: Head Head exam: Present: atraumatic, normocephalic - Eye Eye exam: Present: conjuntiva pink, sclera anicteric. Absent: PERRL Pupils: Absent: PERRL Additional comments: Bilateral blindness - Neck Neck exam general surgery: Present: supple, trachea midline. Absent: lymphadenopathy - Respiratory Respiratory exam: Present: CTAB. Absent: accessory muscle use, rales, rhonchi, wheezes - Cardiovascular Cardiovascular exam: Present: RRR, +S1, +S2. Absent: diastolic murmur, gallop, rubs, systolic murmur - GI/Abdominal GI/Abdominal exam: Present: normal bowel sounds, soft, no peritoneal signs. Absent: distended, tenderness Additional comments: Scrotum is extremely edematous and erythematous mainly on the left side, tender to touch - Extremities Exam Extremities exam: Present: warm, radial pulses palpable and symetrical. Absent : calf tenderness, cyanotic, pedal edema - Neurological Exam Neurological exam: Present: CN II-XII intact, oriented X3, no focal deficits. Absent: pronater drift, facial droop, speech deficit - Skin Skin exam: Present: dry, intact Internal Medicine: Result - Labs CBC & Chem 7: 09/17/16 04:42 09/17/16 04:42 Labs: Short CBC 09/17/16 Range/Units 04:42 WBC 17.3 H (4.3-11.1) K/mcL Hgb 11.8 L (12.9-16.9) g/dL Hct 35.4 L (37.5-50.1) % Plt Count 302 (140-400) K/mcL BMP 09/17/16 04:42 Sodium 136 Potassium 4.0 Chloride 108 Carbon Dioxide 17 L BUN 19 Creatinine 0.90 Glucose 243 H Calcium 8.4 L - ABG Interpretation ABG results: PT/INR, D-dimer PT 13.8 Seconds (9.4-12.1) H 09/15/16 16:03 Consult Discharge Plan - Plan Referrals: Jessica Christine, JANITORIAL SERVICES SUPERVISOR [Primary Care Provider] -
[2016-09-17] MEDS: 0.9 % Sodium Chloride 1,000 ML IVC SCH (20:38)
[2016-09-18] MEDS: 0.9 % Sodium Chloride 1,000 ML IVC SCH (03:36)
[2016-09-18 04:31] LABS: Hematocrit 37.7 % (37.5-50.1); Hemoglobin 12.3 g/dL (12.9-16.9); Mean Corpuscular HGB Conc 32.6 g/dL (31.6-35.5); Mean Corpuscular Hemoglobin 26.5 pg (28.0-33.3); Mean Corpuscular Volume 81.1 fL (83.0-100.0); Mean Platelet Volume 10.3 fL (9.4-12.4); Platelet Count 352 K/mcL (140-400); Red Blood Count 4.65 M/mcL (4.19-5.50); Red Cell Distribution Width 12.9 % (11.5-14.5)
[2016-09-18 04:46] LABS: BUN/Creatinine Ratio 17 (6-26); Blood Urea Nitrogen 15 mg/dL (8-26); Calcium 8.6 mg/dL (8.6-10.8); Carbon Dioxide 18 mEq/L (19-29); Chloride 108 mEq/L (98-109); Glucose 272 mg/dL (70-99); Osmolality,Calculated 290 (280-300); Sodium 135 mEq/L (136-145); eGFR For African Americans > 60 (> 60); eGFR For Non-African Americans > 60 (> 60)
--- NOTE | 2016-09-18 07:32 | Urology Progress Note ---
Date of Encounter: 09/18/16 Time of Encounter: 07:30 - Assessment and Plan (1) Epididymitis Current Visit: Yes Status: Acute Assessment and plan: Left epididymoorchitis on IV levaquin. Continue IV antibiotics. (2) Urinary tract infection Current Visit: Yes Status: Acute Assessment and plan: Continue IV antibiotic for another day and transition to PO. Qualifiers: Urinary tract infection type: acute cystitis Hematuria presence: without hematuria Qualified Code(s): N30.00 - Acute cystitis without hematuria Progress Note Narrative: 60 year old man with left orchitis. On IV antibiotics. Urine culture grew out E. coli. Objective Initial Vital Signs Temp Pulse Resp BP Pulse Ox 98.4 F 96 18 141/87 99 09/15/16 14:23 09/15/16 14:23 09/15/16 14:23 09/15/16 14:23 09/15/16 14:23 - General physical appearance Present: well developed, well nourished - Respiratory Present: normal expansion - Abdomen Present: soft - Genitourinary Present: other (Left testicle still edematous and firm. ) - Labs 09/18/16 03:22 09/18/16 03:22 Diabetes panel 09/18/16 Range/Units 03:22 Sodium 135 L (136-145) mEq/L Potassium 4.0 (3.5-4.5) mEq/L Chloride 108 (98-109) mEq/L Carbon Dioxide 18 L (19-29) mEq/L BUN 15 (8-26) mg/dL Creatinine 0.90 (0.72-1.25) mg/dL Glucose 272 H (70-99) mg/dL Calcium 8.6 (8.6-10.8) mg/dL Calcium panel 09/18/16 Range/Units 03:22 Calcium 8.6 (8.6-10.8) mg/dL Pituitary panel 09/18/16 Range/Units 03:22 Sodium 135 L (136-145) mEq/L Potassium 4.0 (3.5-4.5) mEq/L Chloride 108 (98-109) mEq/L Carbon Dioxide 18 L (19-29) mEq/L BUN 15 (8-26) mg/dL Creatinine 0.90 (0.72-1.25) mg/dL Glucose 272 H (70-99) mg/dL Calcium 8.6 (8.6-10.8) mg/dL Adrenal panel 09/18/16 Range/Units 03:22 Sodium 135 L (136-145) mEq/L Potassium 4.0 (3.5-4.5) mEq/L Chloride 108 (98-109) mEq/L Carbon Dioxide 18 L (19-29) mEq/L BUN 15 (8-26) mg/dL Creatinine 0.90 (0.72-1.25) mg/dL Glucose 272 H (70-99) mg/dL Calcium 8.6 (8.6-10.8) mg/dL Consult Discharge Plan - Plan Referrals: Jessica Christine, CLINICAL PROVIDER TRAINER [Primary Care Provider] -
[2016-09-18] MEDS: Levofloxacin 750 MG/150 ML 750 MG/150 ML BAG IVPB SCH (08:15)
[2016-09-18] MEDS: Insulin LISPRO 300 UNITS/3 ML VIAL SQ SCH ×6 (08:16→20:48)
[2016-09-18] MEDS: amLODIPine 5 MG TABLET PO SCH (08:16)
[2016-09-18] MEDS: *HR* Heparin 5,000 UNIT/ML VIAL SQ SCH ×3 (08:16→23:47)
--- NOTE | 2016-09-18 08:49 | Internal Med Progress Note ---
Date of Encounter: 09/18/16 Time of Encounter: 08:46 - Assessment and plan (1) Sepsis Current Visit: Yes Status: Acute Assessment and plan: Secondary to acute left orchitis, epididymitis and acute cellulitis Discontinued vancomycin and Zosyn on 09/15/16 Continue Levaquin day 3 Resume doxycycline IV due to possible cellulitis as well tested negative for gonococcus and Chlamydia urine culture grew pansensitive Escherichia coli Urology consulted Qualifiers: Sepsis type: sepsis due to unspecified organism Qualified Code(s): A41.9 - Sepsis, unspecified organism (2) HTN (hypertension) Current Visit: Yes Status: Chronic Assessment and plan: Accelerated hypertension likely secondary to pain Order hydralazine as needed Qualifiers: Hypertension type: essential hypertension Qualified Code(s): I10 - Essential (primary) hypertension (3) T2DM (type 2 diabetes mellitus) Current Visit: No Status: Chronic Assessment and plan: Continue insulin sliding scale Qualifiers: Diabetes mellitus complication status: without complication Diabetes mellitus retirement insulin use: without retirement use Qualified Code(s): E11.9 - Type 2 diabetes mellitus without complications (4) Blind in both eyes Current Visit: Yes Status: Chronic (5) Urinary tract infection Current Visit: Yes Status: Acute Qualifiers: Urinary tract infection type: acute cystitis Hematuria presence: without hematuria Qualified Code(s): N30.00 - Acute cystitis without hematuria (6) Epididymitis Current Visit: Yes Status: Acute (7) Acute orchitis Current Visit: Yes Status: Acute (8) Cellulitis of scrotum Current Visit: Yes Status: Acute - Subjective Interval history: Complains of increased pain in his left testicle, denies any major dysuria at the moment, no abdominal pain, no diarrhea, no chest pressures of breath, complains of chills, no fever, feels nauseous - Constitutional Vitals: Temp Pulse Resp BP Pulse Ox 98.7 F 84 16 160/85 98 09/18/16 07:03 09/18/16 07:03 09/18/16 07:03 09/18/16 07:03 09/18/16 07:03 General appearance: Present: cooperative, A&O X 3, pleasant, no acute distress, answers questions appropriately Exam: Head Head exam: Present: atraumatic, normocephalic - Eye Eye exam: Present: conjuntiva pink, sclera anicteric. Absent: PERRL Pupils: Absent: PERRL Additional comments: Bilateral blindness - Neck Neck exam general surgery: Present: supple, trachea midline. Absent: lymphadenopathy - Respiratory Respiratory exam: Present: CTAB. Absent: accessory muscle use, rales, rhonchi, wheezes - Cardiovascular Cardiovascular exam: Present: RRR, +S1, +S2. Absent: diastolic murmur, gallop, rubs, systolic murmur - GI/Abdominal GI/Abdominal exam: Present: normal bowel sounds, soft, no peritoneal signs. Absent: distended, tenderness Additional comments: Scrotum is extremely edematous and erythematous mainly on the left side, tender to touch - Extremities Exam Extremities exam: Present: warm, radial pulses palpable and symetrical. Absent : calf tenderness, cyanotic, pedal edema - Neurological Exam Neurological exam: Present: CN II-XII intact, oriented X3, no focal deficits. Absent: pronater drift, facial droop, speech deficit - Skin Skin exam: Present: dry, Internal Medicine: Result - Labs CBC & Chem 7: 09/18/16 03:22 09/18/16 03:22 Labs: Short CBC 09/18/16 Range/Units 03:22 WBC 16.9 H (4.3-11.1) K/mcL Hgb 12.3 L (12.9-16.9) g/dL Hct 37.7 (37.5-50.1) % Plt Count 352 (140-400) K/mcL [facility] 09/18/16 03:22 Sodium 135 L Potassium 4.0 Chloride 108 Carbon Dioxide 18 L BUN 15 Creatinine 0.90 Glucose 272 H Calcium 8.6 - ABG Interpretation ABG results: PT/INR, D-dimer PT 13.8 Seconds (9.4-12.1) H 09/15/16 16:03 Consult Discharge Plan - Plan Referrals: Jessica Christine, WIRE STRAIGHTENER [Primary Care Provider] -
--- NOTE | 2016-09-18 09:42 | Electrocardiograph Report ---
[place] [id number] Test Date: 2016-09-15 Pat Name: Rehan Toussaint Department: 104 Room: 3A23 Gender: M [employer] Grade Teacher: : 1955 Requested By: William Hines Order Number: [id number] Reading MD: Abdiel Pham MD Measurements Intervals [place] Rate: 85 P: 40 MO: 132 QRS: 2 QRSD: 93 T: 24 QT: 373 QTc: 416 Interpretive Statements SINUS RHYTHM MINIMAL VOLTAGE CRITERIA FOR LVH, CONSIDER NORMAL VARIANT BASELINE ARTIFACT Electronically Signed On 09-18-2016 9:40:51 EDT by Abdeil Pham MD
[2016-09-18] MEDS ORDERED: amLODIPine 5 MG TABLET PO ONE (11:15)
[2016-09-18] MEDS: Doxycycline 100 MG in 0.9 % Sodium Chloride Mini Bag 100 ML IVPB SCH ×2 (11:29→16:36)
[2016-09-18] MEDS: Insulin DETEMIR 100 UNIT/ML X5UNITS SQ SCH (20:45)
[2016-09-19] MEDS: Doxycycline 100 MG in 0.9 % Sodium Chloride Mini Bag 100 ML IVPB SCH ×2 (05:33→18:41)
[2016-09-19 06:41] LABS: Hemoglobin A1C 13.5 %
[2016-09-19 06:42] LABS: Hematocrit 33.7 % (37.5-50.1); Hemoglobin 11.1 g/dL (12.9-16.9); Mean Corpuscular HGB Conc 32.9 g/dL (31.6-35.5); Mean Corpuscular Hemoglobin 26.1 pg (28.0-33.3); Mean Corpuscular Volume 79.3 fL (83.0-100.0); Mean Platelet Volume 9.8 fL (9.4-12.4); Platelet Count 317 K/mcL (140-400); Red Blood Count 4.25 M/mcL (4.19-5.50); Red Cell Distribution Width 12.8 % (11.5-14.5)
[2016-09-19 06:47] LABS: BUN/Creatinine Ratio 13 (6-26); Blood Urea Nitrogen 10 mg/dL (8-26); Calcium 8.2 mg/dL (8.6-10.8); Carbon Dioxide 22 mEq/L (19-29); Chloride 108 mEq/L (98-109); Glucose 215 mg/dL (70-99); Osmolality,Calculated 292 (280-300); Potassium 3.6 mEq/L (3.5-4.5); Sodium 138 mEq/L (136-145); eGFR For African Americans > 60 (> 60); eGFR For Non-African Americans > 60 (> 60)
[2016-09-19] MEDS: Insulin LISPRO 300 UNITS/3 ML VIAL SQ SCH ×7 (08:53→21:54)
[2016-09-19] MEDS: *HR* Heparin 5,000 UNIT/ML VIAL SQ SCH ×2 (09:02→18:40)
[2016-09-19] MEDS: amLODIPine 5 MG TABLET PO SCH (09:02)
[2016-09-19] MEDS: Levofloxacin 750 MG/150 ML 750 MG/150 ML BAG IVPB SCH (09:02)
[2016-09-19] MEDS: 0.9 % Sodium Chloride 1,000 ML IVC SCH (09:04)
--- NOTE | 2016-09-19 12:00 | Internal Med Progress Note ---
Date of Encounter: 09/19/16 Time of Encounter: 11:58 - Assessment and plan (1) Acute orchitis Current Visit: Yes Status: Acute (2) Cellulitis of scrotum Current Visit: Yes Status: Acute (3) Epididymitis Current Visit: Yes Status: Acute Assessment and plan: Improving slowly Cont empirical abx with Doxy and Levofloxacin - May need 10 days course Cont supportive and symptomatic care Urology on board (4) Urinary tract infection Current Visit: Yes Status: Acute Assessment and plan: Urine cx growing E coli con abx Levofloxacin Improved Qualifiers: Urinary tract infection type: acute cystitis Hematuria presence: without hematuria Qualified Code(s): N30.00 - Acute cystitis without hematuria (5) HTN (hypertension) Current Visit: Yes Status: Chronic Assessment and plan: Stable with Norvasc Qualifiers: Hypertension type: essential hypertension Qualified Code(s): I10 - Essential (primary) hypertension (6) T2DM (type 2 diabetes mellitus) Current Visit: No Status: Chronic Assessment and plan: Continue insulin sliding scale and Lantus Qualifiers: Diabetes mellitus complication status: without complication Diabetes mellitus manager intermediate insulin use: without half-way use Qualified Code(s): E11.9 - Type 2 diabetes mellitus without complications (7) DVT prophylaxis Current Visit: Yes Status: Acute Assessment and plan: on SQ Heparin - Subjective Interval history: This is a 60-year-old gentleman with a known past medical history of hypertension type II diabetes and BPH admitted with intractable scrotal pain and swelling with left acute epididymo orchitis. Today patient stated that he is feeling a little better, pain is also little better and tolerable with pain medication. Patient denied any fever no chills - Constitutional Vitals: Temp Pulse Resp BP Pulse Ox 98.3 F 74 18 135/80 96 09/19/16 11:06 09/19/16 11:06 09/19/16 11:06 09/19/16 11:06 09/19/16 11:06 General appearance: Present: cooperative, A&O X 3, pleasant, no acute distress, answers questions appropriately - Head Head exam: Present: atraumatic, normal inspection - Respiratory Respiratory exam: Present: decreased breath sounds, CTAB. Absent: rales, respiratory distress, rhonchi, wheezes - Cardiovascular Cardiovascular exam: Present: RRR, +S1, +S2. Absent: systolic murmur - Additional comments: Mild swollen and erythematous scrotum noticed. mild tenderness over left testicle area noticed. No urethral discharge noticed - Skin Skin exam: Present: dry, intact Internal Medicine: Result - Labs CBC & Chem 7: 09/19/16 05:52 09/19/16 05:52 Labs: Short CBC 09/19/16 Range/Units 05:52 WBC 12.1 H (4.3-11.1) K/mcL Hgb 11.1 L (12.9-16.9) g/dL Hct 33.7 L (37.5-50.1) % Plt Count 317 (140-400) K/mcL BMP 09/19/16 05:52 Sodium 138 Potassium 3.6 Chloride 108 Carbon Dioxide 22 BUN 10 Creatinine 0.80 Glucose 215 H Calcium 8.2 L - ABG Interpretation ABG results: PT/INR, D-dimer PT 13.8 Seconds (9.4-12.1) H 09/15/16 16:03 Consult Discharge Plan - Plan Additional Instructions: Possible d/c home in AM Referrals: Jessica Christine AIR CONTROL/ANTI AIR WARFARE OFFICER [Primary Care Provider] -
--- NOTE | 2016-09-19 13:56 | Urology Progress Note ---
Date of Encounter: 09/19/16 Time of Encounter: 13:53 - Assessment and Plan (1) Epididymitis Current Visit: Yes Status: Acute Assessment and plan: Left orchitis. Consider transition to oral antibiotics. will follow along. (2) Urinary tract infection Current Visit: Yes Status: Acute Assessment and plan: E. coli - [place] sensitive. Consider transition to PO antibiotics. Qualifiers: Urinary tract infection type: acute cystitis Hematuria presence: without hematuria Qualified Code(s): N30.00 - Acute cystitis without hematuria Progress Note Narrative: Left orchitis is stable. He is doing well. Objective Initial Vital Signs Temp Pulse Resp BP Pulse Ox 98.4 F 96 18 141/87 99 09/15/16 14:23 09/15/16 14:23 09/15/16 14:23 09/15/16 14:23 09/15/16 14:23 - General physical appearance Present: well developed, well nourished, no distress - Respiratory Present: normal respiratory effort - Abdomen Present: soft - Genitourinary Present: other (left testicle swelling is stable.) - Labs 09/19/16 05:52 09/19/16 05:52 Diabetes panel 09/19/16 09/19/16 Range/Units 05:52 05:52 Sodium 138 (136-145) mEq/L Potassium 3.6 (3.5-4.5) mEq/L Chloride 108 (98-109) mEq/L Carbon Dioxide 22 (19-29) mEq/L BUN 10 (8-26) mg/dL Creatinine 0.80 (0.72-1.25) mg/dL Glucose 215 H (70-99) mg/dL Hemoglobin A1c 13.5 H ( - 5.6) % Calcium 8.2 L (8.6-10.8) mg/dL Calcium panel 09/19/16 Range/Units 05:52 Calcium 8.2 L (8.6-10.8) mg/dL Pituitary panel 09/19/16 Range/Units 05:52 Sodium 138 (136-145) mEq/L Potassium 3.6 (3.5-4.5) mEq/L Chloride 108 (98-109) mEq/L Carbon Dioxide 22 (19-29) mEq/L BUN 10 (8-26) mg/dL Creatinine 0.80 (0.72-1.25) mg/dL Glucose 215 H (70-99) mg/dL Calcium 8.2 L (8.6-10.8) mg/dL Adrenal panel 09/19/16 Range/Units 05:52 Sodium 138 (136-145) mEq/L Potassium 3.6 (3.5-4.5) mEq/L Chloride 108 (98-109) mEq/L Carbon Dioxide 22 (19-29) mEq/L BUN 10 (8-26) mg/dL Creatinine 0.80 (0.72-1.25) mg/dL Glucose 215 H (70-99) mg/dL Calcium 8.2 L (8.6-10.8) mg/dL Consult Discharge Plan - Plan Additional Instructions: Possible d/c home in AM Referrals: Jessica Christine CNP [Primary Care Provider] -
[2016-09-19] MEDS: Insulin DETEMIR 100 UNIT/ML X5UNITS SQ SCH (21:54)
[2016-09-20] MEDS: *HR* Heparin 5,000 UNIT/ML VIAL SQ SCH ×2 (01:15→08:43)
[2016-09-20] MEDS: Doxycycline 100 MG in 0.9 % Sodium Chloride Mini Bag 100 ML IVPB SCH (05:40)
[2016-09-20 06:23] LABS: Basophils # 0.1 K/mcL (0.0-0.2); Basophils % 0.9 %; Eosinophils # 0.1 K/mcL (0.0-0.6); Eosinophils % 0.9 %; Hematocrit 42.3 % (37.5-50.1); Hemoglobin 13.9 g/dL (12.9-16.9); Immature Granulocytes % 4.8 % (0-4); Immature Platelets 2.9 % (1.1-6.1); Lymphocytes # 3.1 K/mcL (0.6-4.6); Mean Corpuscular HGB Conc 32.9 g/dL (31.6-35.5); Mean Corpuscular Hemoglobin 26.5 pg (28.0-33.3); Mean Corpuscular Volume 80.6 fL (83.0-100.0); Mean Platelet Volume 10.1 fL (9.4-12.4); Monocytes # 1.2 K/mcL (0.0-1.3); Monocytes % 9.3 %; Neutrophils # 7.7 K/mcL (1.6-8.9); Platelet Count 414 K/mcL (140-400); Red Blood Count 5.25 M/mcL (4.19-5.50); Red Cell Distribution Width 12.8 % (11.5-14.5); Segmented Neutrophils % 60.1 %
[2016-09-20] MEDS: Insulin LISPRO 300 UNITS/3 ML VIAL SQ SCH ×6 (08:36→15:12)
[2016-09-20] MEDS: Levofloxacin 750 MG/150 ML 750 MG/150 ML BAG IVPB SCH (08:43)
[2016-09-20] MEDS: amLODIPine 5 MG TABLET PO SCH (08:43)
[2016-09-20 11:16] VITALS: BP 134/82
--- NOTE | 2016-09-20 11:29 | Discharge Summary ---
Date of Encounter: 09/20/16 Time of Encounter: 11:27 - Discharge Diagnosis (1) Acute orchitis Priority: Primary Status: Acute (2) Cellulitis of scrotum Priority: Primary Status: Acute (3) Epididymitis Priority: Primary Status: Acute (4) Urinary tract infection Priority: Primary Status: Acute Qualifiers: Urinary tract infection type: acute cystitis Hematuria presence: without hematuria Qualified Code(s): N30.00 - Acute cystitis without hematuria (5) HTN (hypertension) Priority: Secondary Status: Chronic Qualifiers: Hypertension type: essential hypertension Qualified Code(s): I10 - Essential (primary) hypertension (6) T2DM (type 2 diabetes mellitus) Priority: Secondary Status: Chronic Qualifiers: Diabetes mellitus complication status: without complication Diabetes mellitus custodial insulin use: without long term care phlebotomist use Qualified Code(s): E11.9 - Type 2 diabetes mellitus without complications - Discharge Medications Prescriptions: Doxycycline Hyclate 100 mg PO BID 7 Days glipiZIDE [Glucotrol] 5 mg PO BIDWM #60 tablet Levofloxacin [Levaquin] 500 mg PO DAILY 7 Days Metformin HCl [Glucophage] 1,000 mg PO BID #60 tablet Saccharomyces Boulardii [Florastor] 250 mg PO BID 7 Days Home Medications: Doxycycline Hyclate 100 mg PO BID 7 Days 09/20/16 [Rx] Levofloxacin [Levaquin] 500 mg PO DAILY 7 Days 09/20/16 [Rx] Lisinopril [Zestril] 20 mg PO DAILY #30 tablet 09/20/16 [Rx] Metformin HCl [Glucophage] 1,000 mg PO BID #60 tablet 09/20/16 [Rx] Saccharomyces Boulardii [Florastor] 250 mg PO BID 7 Days 09/20/16 [Rx] amLODIPine [Norvasc] 5 mg PO DAILY #30 tablet 09/20/16 [Rx] glipiZIDE [Glucotrol] 5 mg PO BIDWM #60 tablet 09/20/16 [Rx] Allergies/Adverse Reactions: Allergies No Known Allergies Allergy (Verified 09/15/16 14:26) Date of admission: 09/15/16 21:21 Primary care physician: Jessica Christine CNP Consults: 09/15/16 22:31 Consult to Nutrition [CONS] Routine Comment: Consulting Provider: NUTRITION Reason for Dietary Consult: MST Score Anticipated date of discharge: 09/20/16 - Patient Status Disposition: Home Health Service Condition: Good - Discharge Instructions Follow Up With: Jessica Christine CNP [Primary Care Provider] - 09/26/16 9:45 am Additional Instructions: Possible d/c home in AM Hospital course: Mr. Toussaint is a 60-year-old gentleman, who is a legally blind and known past medical history of hypertension type II diabetes and BPH admitted with intractable scrotal pain and swelling with left acute epididymo orchitis. Pt was admitted in the hospital and started on empirical abx with Zosyn and Vancomycin initially. Pt was also evaluated by urologist. Later he was placed on Doxycycline and Levofloxcin. Since then his scrotal swelling , erythema and tenderness started improving. His scrotal tenderness resolved, but still has mild erythema. Pt also happened to have uncontrolled DM2 with HbA1C 13.5 , apparently pt stopped taking his medications for a while since his BS were well controlled a couple of year ago. Since his HbA1C was so high he may get nenefit with Lantus at [facility] at low dose along with PO Meds. At least for now I started him on Metformin 1000mg BID and Glipizide 5mg BID and talked to PCP office staff about other recommendations about insulin. Pt does habe uncontrolled BP too, so started him PO Lisinopril and Norvasc. Pt is getting d/c d home today in stable condition with home health services. Recommend to f/u with PCP and Urologist - Time Spent with Patient Total time spent providing and/or coordinating discharge services: Greater than 30 minutes (spent 45 minutes on his discharge, due to his multiple medical problems, does required lot of education) - Constitutional Vitals: Temp Pulse Resp BP Pulse Ox 98.8 F 79 16 134/82 96 09/20/16 11:14 09/20/16 11:14 09/20/16 11:14 09/20/16 11:14 09/20/16 11:14 General appearance: Present: cooperative, A&O X 3, pleasant, no acute distress, answers questions appropriately - Respiratory Respiratory exam: Present: CTAB. Absent: accessory muscle use, rales, rhonchi, wheezes - Cardiovascular Cardiovascular exam: Present: RRR, +S1, +S2. Absent: diastolic murmur, gallop, rubs, systolic murmur - Additional comments: improving erythema and swelling in Scrotum. No tenderness - Psychiatric Psychiatric exam: Present: normal affect, normal mood
--- NOTE | 2016-09-20 11:40 | Physician Discharge Referral ---
Home Health/Hosp Referral Info Transfer to: Home Health ([facility]) - Diagnosis (1) Acute orchitis Status: Acute (2) Cellulitis of scrotum Status: Acute (3) Epididymitis Status: Acute (4) Urinary tract infection Status: Acute (5) HTN (hypertension) Status: Chronic (6) T2DM (type 2 diabetes mellitus) Status: Chronic - Respiratory Orders Smoking Cessation: Smoking cessation has been advised. For more information, call the [place] Tobacco Quit Line at 2-522-SJPD-NOW. - Transfer Medications Prescriptions: amLODIPine [Norvasc] 5 mg PO DAILY #30 tablet Doxycycline Hyclate 100 mg PO BID 7 Days glipiZIDE [Glucotrol] 5 mg PO BIDWM #60 tablet Levofloxacin [Levaquin] 500 mg PO DAILY 7 Days Lisinopril [Zestril] 20 mg PO DAILY #30 tablet Metformin HCl [Glucophage] 1,000 mg PO BID #60 tablet Saccharomyces Boulardii [Florastor] 250 mg PO BID 7 Days Home Medications: Doxycycline Hyclate 100 mg PO BID 7 Days 09/20/16 [Rx] Levofloxacin [Levaquin] 500 mg PO DAILY 7 Days 09/20/16 [Rx] Lisinopril [Zestril] 20 mg PO DAILY #30 tablet 09/20/16 [Rx] Metformin HCl [Glucophage] 1,000 mg PO BID #60 tablet 09/20/16 [Rx] Saccharomyces Boulardii [Florastor] 250 mg PO BID 7 Days 09/20/16 [Rx] amLODIPine [Norvasc] 5 mg PO DAILY #30 tablet 09/20/16 [Rx] glipiZIDE [Glucotrol] 5 mg PO BIDWM #60 tablet 09/20/16 [Rx] Allergies/Adverse Reactions: Allergies No Known Allergies Allergy (Verified 09/15/16 14:26) Certification: Further, I certify that my clinical findings support that this patient is homebound (i.e. absences from home require considerable and taxing effort and are for medical reasons or yarsanism services or infrequently or short duration when for other reasons) because: Homebound Reason: Patient requires assistance of a person or device to safely leave home Attestation: My signature below is to certify that this patient is under my care and that I, or nurse practitioner, or a physician's registered dental assistant working with me, has a face-to -face encounter with this patient.
== END 2016-09-20 15:25 | disposition home health service (06) | DRG 872 ==
LOC: EMEROO 13:50 → 3ANU 13:50 → SUATTDRO 21:21
PROVIDERS: ADMIT Internal Medicine Endocrinology, Diabetes & Metabolism; ATTEND Family Medicine